=== PATIENT | female | born 1955 | race Caucasian/White ===

== ENCOUNTER 2016-12-17 07:21 | Emergency (ER) ==
[2016-12-17 07:26] VITALS: BP 124/73; TEMP 99; BMI 24.2
--- NOTE | 2016-12-17 07:41 | ED.PDOC ---
General ED Provider: Dr. MARK ZUNIGA JR Chief Complaint: Rash Stated Complaint: SAW DR WILSON FOR CELLULITIS BEGAN BACTRIM BID SAW DR OCHOA MANCUSO- SWABBED AND INCREASED TO THREE A DAY BACTRIM TODAY WITH HIVES MOST PROMINENT ON BACK ALSO HAS RED THROAT FULL FEELING IN THROAT, FEELING ANXIOUS. STARTED BACTRIM ON LAST FRIDAY FOR STAPH INFECTION TO BACK OF HEAD. LAST NIGHT STARTED GETTING A RASH TO HEAD, ARMS AND TRUNK. STATES FEELS LIKE LIPS ARE SWOLLEN AND TONGUE BURNING, AND HARD TO SWALLOW [End]99.0 94 18 97% 124/73 Time Seen by Physician: 07:40 Mode of Arrival: Walk-In Information Source: Patient Exam Limitations: No limitations Primary Care Provider: BETINA WILSON Nursing and Triage Documentation Reviewed and Agree: No Review of Systems - Review Of Systems Constitutional: Reports: Malaise Eyes: Reports: No symptoms Ears, Nose, Mouth, Throat: Reports: Throat pain, Throat swelling Respiratory: Reports: No symptoms Cardiac: Reports: No symptoms GI: Reports: No symptoms : Reports: No symptoms Musculoskeletal: Reports: No symptoms Skin: Reports: Rash Neurological: Reports: Anxiety Endocrine: Reports: No symptoms Hematologic/Lymphatic: Reports: No symptoms All Other Systems: Other Past Medical History - Past Medical History Endocrine: Reports: DM 2 Cardiovascular: Reports: None Respiratory: Reports: None Hematological: Reports: None Gastrointestinal: Reports: None Genitourinary: Reports: None Neuro/Psych: Reports: None Musculoskeletal: Reports: None Cancer: Reports: None Last Menstrual Period: NONE Other Pertinent Past Medical History: DM HYST TONSILS - Surgical History General Surgical History: Reports: Hysterectomy, Tonsillectomy - Family History Family History: Reports: Unknown - Social History Smoking Status: Former smoker Hx Substance Use: No Alcohol Screening: None Physical Exam - Physical Exam Appearance: Well-appearing Ill-appearing: Mild Pain Distress: Mild Eyes: TYESHA, EOMI, Conjunctiva clear ENT: Erythema Neck: Supple Respiratory: Airway patent, Breath sounds clear Cardiovascular: RRR, Pulses normal, No rub, No murmur GI/: Soft, Nontender, No masses, Bowel sounds normal, No Organomegaly Musculoskeletal: Normal strength, ROM intact, No edema, No calf tenderness Skin: Warm, Dry Neurological: Sensation intact, Motor intact, Reflexes intact, Cranial nerves intact, Alert, Oriented Psychiatric: Affect appropriate, Mood appropriate, Anxious Physician Notification - Case Discussed Physician Notified: CALLED DR MANCUSO- ANSWERING SERVICE [id number] Time of Notification: 07:55 (NO RESPONSE 0815) Critical Care Note - Critical Care Note Total Time (mins): 0 Course - Course Orders, Labs, Meds: Orders Category Date Time Status Diphenhydramine Inj [Benadryl] MEDS 12/17/16 07:51 Discontinued 25 mg IM ONCE STA Methylprednisolone Sod Succ/Pf [Solu-Medrol 125 mg] MEDS 12/17/16 07:51 Discontinued 125 mg IM ONCE STA Medications Discontinued Medications Generic Name Dose Route Start Last Admin Trade Name Darin PRN Reason Stop Dose Admin Diphenhydramine HCl 25 mg 12/17/16 07:51 12/17/16 08:00 Benadryl IM 12/17/16 07:52 25 mg ONCE STA Administration Methylprednisolone Sodium Succinate 125 mg 12/17/16 07:51 12/17/16 07:58 Solu-Medrol 125 Mg IM 12/17/16 07:52 125 mg ONCE STA Administration Vital Signs: Temp Pulse Resp BP Pulse Ox 12/17/16 07:22 99.0 F 94 H 18 124/73 97 Departure - Departure Time of Disposition: 07:49 Disposition: HOME SELF-CARE Discharge Problem: Full body hives Instructions: Urticaria (ED) Condition: Good Pt referred to PMD for follow-up: Yes Additional Instructions: BENADRYL AND OR CLARITIN(OR SIMILAR ANTIHISTAMINE )FOR ITCHING GIVEN SOLUMEDROL IN ER MAY BEGIN MEDROL DOSE PACK IF RASH RETURNS RETURN IF DIFFICULTY SWALLOWING OR BREATHING STEROIDS WORSEN SUGAR CONTROL WATCH DIET CAREFULLY - AVOID SUGARS AND CARBOHYDRATES LIMIT MEAL SIZES CHANGE ANTIBIOTIC- MAY BEGIN DOXYCYCLINE TODAY THIS ANTIBIOTIC IS TO BE TAKEN WITH MEALS(BREAKFAST AND SUPPER) CALL DR MANCUSO TO CHECK CULTURE BEFORE GOING TO DOXYCYCLINE Prescriptions: Doxycycline Monohydrate [Monodox] 100 mg PO BID #20 capsule Methylprednisolone [Medrol Dosepak] 4 mg PO DIRECTED #1 pkg Allergies/Adverse Reactions: Allergies No Known Allergies Allergy (Verified 12/17/16 07:26) Home Medications: Ambulatory Orders Doxycycline Monohydrate [Monodox] 100 mg PO BID #20 capsule 12/17/16 Metformin HCl [Glucophage Xr] 1,000 mg PO BEDTIME 12/17/16 Methylprednisolone [Medrol Dosepak] 4 mg PO DIRECTED #1 pkg 12/17/16
[2016-12-17] MEDS ORDERED: BENADRYL IM STA (07:51)
[2016-12-17] MEDS ORDERED: SOLU-MEDROL 125 MG IM STA (07:51)
== END 2016-12-17 08:46 | disposition home or self-care (01) ==
LOC: ED 07:21
DX: L50.9 Urticaria, unspecified (principal); E11.9 Type 2 diabetes mellitus without complications
CPT/HCPCS: 96372; 99282

== ENCOUNTER 2017-06-10 10:32 | Outpatient (CLI) ==
--- NOTE | 2017-06-11 10:13 | MAMMO ---
EXAM: Bilateral digital screening mammogram History: Screening Comparison: Bilateral mammogram 04/18/2016 Findings: MLO and CC views of bilateral breasts demonstrate scattered fibroglandular breast parenchy ma. There are no dominant masses, no suspicious microcalcifications and no architectural distortion s. Impression: Stable negative mammogram. Recommend followup routine screening mammography in 1 year. BIRADS 1
== END 2017-06-10 10:33 | disposition home or self-care (01) ==
LOC: RAD 10:32
PROVIDERS: ATTEND Family Medicine
DX: Z12.31 Encounter for screening mammogram for malignant neoplasm of breast (principal)

== ENCOUNTER 2018-04-15 12:03 | Outpatient (CLI) ==
--- NOTE | 2018-04-15 13:48 | DI ---
EXAM: Radiographs, left ankle HISTORY: Acute left ankle pain. COMPARISON: None available. TECHNIQUE: Three views. FINDINGS: Bone mineralization is normal. There is no fracture or dislocation. The joint spaces are maintained. No focal soft tissue abnormality is seen. IMPRESSION: No fracture or dislocation.
--- NOTE | 2018-04-15 13:50 | DI ---
EXAM: Left foot three views HISTORY: Acute pain, twisted ankle COMPARISON: None FINDINGS: No fracture or dislocation. Mild osteoarthritis first MTP joint with mild joint space gaudencio rowing. Mild soft tissue prominence adjacent to first MTP joint. IMPERSSION: 1. No fracture or dislocation. 2. Mild osteoarthritis first MTP joint. 3. Mild soft tissue prominence adjacent to first MTP joint.
== END 2018-04-15 12:04 | disposition home or self-care (01) ==
LOC: RAD 12:03
PROVIDERS: ATTEND Family Medicine
DX: M25.572 Pain in left ankle and joints of left foot (principal); M79.672 Pain in left foot

== ENCOUNTER 2018-06-09 08:36 | Outpatient (CLI) | END 2018-06-09 08:37 | disposition home or self-care (01) | LOC: RAD 08:36 | PROVIDERS: ATTEND Family Medicine | DX: Z12.31 Encounter for screening mammogram for malignant neoplasm of breast (principal) | CPT/HCPCS: 77067 ==

== ENCOUNTER 2019-01-13 08:09 | Outpatient (CLI) ==
--- NOTE | 2019-01-13 09:07 | CT ---
EXAM: CT of the sinuses without contrast History: Sinusitis. Technique: Multiplanar CT images through the sinuses were obtained without the administration of IV contrast Findings: Orbits are intact. The visualized intracranial contents demonstrate no acute findings. S urrounding soft tissues demonstrate no acute findings. No acute fracture or dislocation. There is fluid within the right mastoid air cells and right middle ear cavity. Air-fluid levels and mucosal thickening of the bilateral maxillary sinuses and bilatera l ethmoid air cells. A few prominent bilateral neck lymph nodes are most likely reactive. Impression: 1. Acute paranasal sinusitis. 2. Right mastoid effusion and fluid within the right middle ear cavity suggesting otitis media.
== END 2019-01-13 08:10 | disposition home or self-care (01) ==
LOC: RAD 08:09
PROVIDERS: ATTEND Family Medicine
DX: J44.9 Chronic obstructive pulmonary disease, unspecified (principal); R05 Cough; J32.9 Chronic sinusitis, unspecified; H66.90 Otitis media, unspecified, unspecified ear

== ENCOUNTER 2019-01-14 08:01 | Outpatient (CLI) ==
--- NOTE | 2019-01-14 10:52 | CT ---
EXAM: CT of the chest without contrast History: Cough, chronic obstructive pulmonary disease Comparison: Chest radiograph 08/14/2011 Technique: Multiplanar CT images through the thorax were obtained without the administration of IV c ontrast Findings: Heart size is upper limits of normal. Small to moderate pericardial effusion. No thoraci c aortic aneurysm. No axillary lymphadenopathy. No pathologically enlarged mediastinal or hilar lym ph nodes. No consolidation. Mild emphysema. Biapical lung scarring. No pleural fluid and no pneum othorax. 7 mm right lower lobe lung nodule. Within the visualized upper abdomen, no acute findings. No acute osseous abnormalities. Impression: 1. No evidence for pneumonia. 2. 7 mm right lower lobe lung nodule. Recommend follow-up chest CT in 6 months. 3. Small to moderate pericardial effusion. 4. Mild emphysema
== END 2019-01-14 08:02 | disposition home or self-care (01) ==
LOC: RAD 08:01
PROVIDERS: ATTEND Family Medicine
DX: J44.9 Chronic obstructive pulmonary disease, unspecified (principal); R05 Cough; J32.9 Chronic sinusitis, unspecified; H66.90 Otitis media, unspecified, unspecified ear

== ENCOUNTER 2019-03-01 10:10 | Day surgery (SDC) ==
[2019-03-01 10:42] VITALS: TEMP 97.8
[2019-03-01] MEDS ORDERED: LIDOCAINE 1% 20 ML MDV ID STA (10:42)
[2019-03-01] MEDS ORDERED: DIPRIVAN 20 ML VIAL IVP ONE (10:55)
[2019-03-01] MEDS ORDERED: VERSED ONE (10:55)
[2019-03-01] MEDS ORDERED: LIDOCAINE HCL 2% LUER-JET ONE (10:55)
[2019-03-01 11:36] VITALS: BP 111/55
--- NOTE | 2019-03-02 12:42 | OP ---
PROCEDURE: EGD (ESOPHAGOGASTRODUODENOSCOPY). ENDOSCOPIST: Jolynn CONTI M.D. INDICATION: ANEMIA, HEME POSITIVE STOOLS. INSTRUMENT: [facility]-190. MEDICATION: PER ANESTHESIA. PROCEDURE: The patient was positioned for endoscopy. The oropharynx was sprayed with Cetacaine spray and the endoscope was advanced through the bite block into the esophagus and from there advanced to the duodenum. The duodenum was grossly normal. The pylorus was patent. The antrum is normal. Retroflex exam revealed a hiatal hernia. The z-line was regular at 39 cm. No evidence for bleeding. No evidence for esophagitis. No evidence for mass. She tolerated the procedure without immediate complication. cc: Dr. Cristo ESCOBAR
--- NOTE | 2019-03-02 12:46 | OP ---
PROCEDURE: COLONOSCOPY. ENDOSCOPIST: Jolynn CONTI M.D. INDICATION: ANEMIA, HEME POSITIVE STOOLS. INSTRUMENT: [facility]-190. MEDICATION: PER ANESTHESIA. PROCEDURE: The patient was positioned for colonoscopy. The digital rectal exam was negative. The colonoscope was inserted through the anus and advanced to the cecum. The cecum was identified using the ileocecal valve and the appendiceal orifice as landmarks. The scope was slowly withdrawn through an adequately prepped colon. The exam was normal. The retroflex exam was normal. Withdrawal time 6 minutes and 40 seconds. PLAN: 1. Repeat exam for surveillance in 5 years. cc: Dr. Cristo ESCOBAR
== END 2019-03-01 12:50 | disposition home or self-care (01) ==
LOC: SURG 10:10
PROVIDERS: ATTEND Internal Medicine Gastroenterology
DX: D64.9 Anemia, unspecified (principal); R19.5 Other fecal abnormalities; K44.9 Diaphragmatic hernia without obstruction or gangrene